=== PATIENT | male | born 1980 | race Caucasian/White ===

== ENCOUNTER 2020-10-03 04:23 | Emergency (ER) | payer OTHER ==
[~2020-10-03] VITALS: Ht 188 cm; Wt 81.7 kg
[2020-10-03 04:55] LABS: BASOPHILS ABSOLUTE AUTO 0.05 K/mm3 (0.00-0.23); BASOPHILS PERCENT AUTO 1 % (0-2); EOSINOPHILS ABSOLUTE AUTO 0.17 K/mm3 (0.00-0.68); EOSINOPHILS PERCENT AUTO 2 % (0-6); Hematocrit 46.9 % (37.0-53.0); IMMATURE GRAN ABSOLUTE AUTO 0.02 K/mm3 (0.00-0.10); IMMATURE GRAN PERCENT AUTO 0 % (0-1); LYMPHOCYTES ABSOLUTE AUTO 0.99 K/mm3 (0.84-5.20); LYMPHOCYTES PERCENT AUTO 11 % (21-46); MONOCYTES ABSOLUTE AUTO 0.96 K/mm3 (0.16-1.47); MONOCYTES PERCENT AUTO 10 % (4-13); Mean Corpuscular HGB 33.3 pg (26.0-34.0); Mean Corpuscular HGB Conc 34.1 g/dL (31.5-36.5); Mean Corpuscular Volume 98 fL (80-100); Mean Platelet Volume 9.4 fL (9.1-12.4); NEUTROPHILS ABSOLUTE AUTO 7.15 K/mm3 (1.96-9.15); NEUTROPHILS PERCENT AUTO 77 % (41-73); Platelet Count 154 K/mm3 (150-400); RDW Coefficient Variation 11.8 % (11.7-14.2); RDW Standard Deviation 42.6 fL (35.1-46.3); White Blood Cell Count 9.34 K/mm3 (4.00-11.30)
[2020-10-03 05:13] LABS: Alanine Aminotransfer (ALT/SGP 63 U/L (12-78); Albumin, Blood 4.4 g/dL (3.4-5.0); Albumin/Globulin Ratio 1.1 (0.8-1.8); Alk Phos 91 U/L (50-136); Anion Gap 8 mmol/L (6-16); Aspartate Aminotrans (AST/SGOT 48 U/L (12-37); Bilirubin, Total 0.3 mg/dL (0.1-1.0); Blood Urea Nitrogen 11 mg/dL (8-24); Bun/Creatinine Ratio 11.6 (12.0-20.0); CO2, Blood 26 mmol/L (21-32); Calcium, Blood 8.7 mg/dL (8.5-10.1); Chloride, Blood 111 mmol/L (98-108); Creatinine, Blood 0.95 mg/dL (0.60-1.20); Glomerular Filtration Rate >60 (60-); Glucose, Blood 96 mg/dL (70-99); Potassium, Blood 4.1 mmol/L (3.5-5.5); Salicylate 4.3 mg/dL (2.8-20.0); Sodium, Blood 145 mmol/L (136-145); Total Protein, Blood 8.4 g/dL (6.4-8.2)
[2020-10-03 05:19] LABS: Acetaminophen, Random <2.0 ug/mL (10.0-30.0)
[2020-10-03 05:40] LABS: Ethanol (Alcohol), Blood, Med 374 mg/dL
[2020-10-03 07:20] LABS: Source, Urine Clean Catch
[2020-10-03 07:23] LABS: Bilirubin, Urine Neg (Neg); Blood, Urine 5+ (Neg); Glucose Qualitative, Urine Neg (Neg); Ketones, Urine 1+ (Neg); Leukocyte Esterase, Urine 2+ (Neg); Nitrite, Urine Neg (Neg); Protein, Urine 1+ (Neg); Specific Gravity, Urine 1.015 (1.003-1.022); Urobilinogen, Urine NORM (Normal)
[2020-10-03 07:42] LABS: Appearance, Urine Clear (Clear); Color, Urine Yellow (P-Yellow)
[2020-10-03 07:44] LABS: Bacteria Mod /hpf; Squamous Epithelial Cells Rare /hpf (Few); White Blood Cells, Urine 0-2 /hpf (0-5)
[2020-10-03 07:45] LABS: Mucus Light (0-Heavy)
[2020-10-03 08:00] LABS: U Amphetamine Screen Not Detected; U Barbituate Screen Not Detected; U Benzodiazapine Screen Not Detected; U Buprenorphine Screen Not Detected; U Cannabinoids Screen Not Detected; U Cocaine Screen Not Detected; U Methadone Screen Not Detected; U Methamphetamine Screen Not Detected; U Opiates Screen Not Detected; U Oxycodone Screen Not Detected; U Phencyclidine Screen Not Detected; U Propoxyphene Screen Not Detected
== END 2020-10-03 13:25 | disposition home or self-care (01) ==
LOC: ER 04:23
PROVIDERS: Emergency Medicine
DX: S14.159A Other incomplete lesion at unspecified level of cervical spinal cord, initial encounter (principal); F10.129 Alcohol abuse with intoxication, unspecified; X58.XXXA Exposure to other specified factors, initial encounter; Y90.8 Blood alcohol level of 240 mg/100 ml or more
CPT/HCPCS: 51702; 51798; 72141; 72146; 72148; 80053; 81001; 85025; 87086; 96374-59; 96375-59; 99285-25; G0480; J1100; J1170; J2405; J7030; L0160

== ENCOUNTER 2024-05-08 07:46 | Day surgery (SDC) | payer OTHER ==
[~2024-05-08] VITALS: Ht 188 cm; Wt 74.0 kg
[~2024-05-08 07:46] MED LIST: Lactated Ringer's 1,000 ML IV ONE
[2024-05-08] MEDS ORDERED: NS 50 ML IV ONE (08:02)
[2024-05-08] MEDS ORDERED: CeFAZolin Sodium 2,000 MG VIAL ONE (08:02)
[2024-05-08] MEDS ORDERED: Lactated Ringer's 1,000 ML IV ONE (08:22)
[2024-05-08] MEDS ORDERED: propofoL 20 ML IV ONE (09:07)
[2024-05-08] MEDS ORDERED: Glycopyrrolate 0.2 MG/ML 5ML VIAL ONE (09:08)
[2024-05-08] MEDS ORDERED: FentaNYL Citrate 50 MCG/ML 2 ML Injection ONE (09:10)
[2024-05-08] MEDS ORDERED: Midazolam HCl 1MG / ML 2ML Vial ONE (09:15)
[2024-05-08] MEDS ORDERED: Lidocaine 2%-Epineph 1:100000 20 ML MDV INJ ONE (09:25)
[2024-05-08 09:59] VITALS: BP 140/70
== END 2024-05-08 10:20 | disposition home or self-care (01) ==
LOC: ORSCSDS 07:46
PROVIDERS: Orthopaedic Surgery
PROC: 0RBW0ZX Excision of Right Finger Phalangeal Joint, Open Approach, Diagnostic (ICD-10-PCS; principal; 2024-05-08 09:00)
DX: R22.31 Localized swelling, mass and lump, right upper limb (principal); M25.741 Osteophyte, right hand; F17.210 Nicotine dependence, cigarettes, uncomplicated
CPT/HCPCS: J0690; J2250; J2704; J3010; J7120